=== PATIENT | female | born 1975 | race Hispanic/Latino ===

== ENCOUNTER 2018-01-15 14:36 | Emergency (ER) | payer OTHER ==
[~2018-01-15 14:36] MED LIST: Iopamidol 370 76% 100 ML VIAL ONE
--- NOTE | 2018-01-15 16:48 | CT ---
CT HEAD NONCONTRAST: Date: 01/15/18 INDICATION: Fall. Head injury. Midline tenderness. Pain. FINDINGS: No ventriculomegaly, mass effect, midline shift, or acute intracranial hemorrhage. The calvarium is i ntact. There is no pneumocephalus. IMPRESSION: No acute intracranial hemorrhage or mass effect. POS: [facility]
--- NOTE | 2018-01-15 16:50 | CT ---
CT OF THE CERVICAL SPINE WITHOUT CONTRAST: COMPARISON: None. HISTORY: Fell 3 ft. from a platform and landed on backside 1 hour ago. Midline neck tenderness. TECHNIQUE: Multiple contiguous axial images were obtained in a CT of the cervical spine without contrast. Sagitt al and coronal reformats were performed. FINDINGS: The vertebral bodies and intervertebral discs demonstrate normal height and alignment without fractur e or subluxation. No prevertebral soft tissue swelling is present. The posterior facets are well alig michelle. Normal alignment of the skull base with the cervical spine is seen. IMPRESSION: No evidence of acute osseous abnormality of the cervical spine. POS: [facility]
--- NOTE | 2018-01-15 17:20 | CT ---
CT OF THE CHEST WITH CONTRAST CT OF THE ABDOMEN AND PELVIS WITH CONTRAST LIMITED CT OF THORACIC AND LUMBOSACRAL SPINE WITH CONTRAST: Date: 01/15/18 HISTORY: Fell 3 ft. from a platform and landed on backside 1 hour ago. Diffuse abdominal pain, chest pain, and back pain. TECHNIQUE: 1. multiple contiguous axial images were obtained in a CT of the chest with contrast. Coronal reform ats were performed. 2. Multiple contiguous axial images were obtained in a CT of the abdomen and pelvis with contrast. C oronal reformats were performed. 3. Limited CTs of thoracic and lumbosacral spines performed. Sagittal and coronal reformats were cre ated based off images obtained in the chest, abdomen, and pelvic CTs. FINDINGS: CT CHEST; The heart is normal in size without focal cardiac abnormality. No hilar or mediastinal lymphadenopath y are seen. No pneumothorax or pleural effusions are seen. No focal infiltrates or masses are seen in the lungs. The bones of the thorax are unremarkable. The chest wall soft tissues are unremarkable. CT ABDOMEN/PELVIS: The patient is status post cholecystectomy. The liver, kidneys, adrenal glands, spleen, and pancreas are unremarkable. No free air, free fluid, or stranding changes are seen in the abdomen or pelvis. There appear to be small nabothian cysts in the cervix. The large and small bowel are unremarkable. T he appendix is normal. No abdominal or pelvic lymphadenopathy seen. The bones of the pelvis and abdominal soft tissues are unremarkable. LIMITED CT OF THORACIC AND LUMBOSACRAL SPINE: The vertebral bodies demonstrate normal height and alignment without acute fracture or subluxation. M ild degenerative changes are seen in the thoracic and lumbar spine. There is a moderate disc osteophy te complex at L5-S1 which causes narrowing of the central canal. This is likely chronic. IMPRESSION: 1. No evidence of acute intrathoracic abnormality. 2. No evidence of acute intra-abdominal/pelvic abnormality. 3. Nabothian cysts in the cervix. 4. No evidence of acute osseous abnormality of the thoracic or lumbosacral spine. POS: [facility]
== END 2018-01-15 17:21 | disposition home or self-care (01) ==
LOC: MADERS 14:36
DX: S16.1XXA Strain of muscle, fascia and tendon at neck level, initial encounter (principal); S20.222A Contusion of left back wall of thorax, initial encounter; S00.93XA Contusion of unspecified part of head, initial encounter; W20.8XXA Other cause of strike by thrown, projected or falling object, initial encounter
CPT/HCPCS: 70450; 71260; 72125; 74177